=== PATIENT | male | born 1995 | race Caucasian/White ===

== ENCOUNTER 2018-07-11 10:24 | Emergency (ER) | payer OTHER ==
[2018-07-11] MEDS ORDERED: Acetaminophen/HYDROcodone 325-5 MG Tab PO ONE ×2 (10:58→11:35)
[2018-07-11] MEDS ORDERED: Lidocaine 1% 50 ML MDV INJECT ONE (10:59)
--- NOTE | 2018-07-11 11:39 | EDM.PDOC ---
ED HPI GENERAL MEDICAL PROBLEM - General Chief Complaint: ENT Problem Stated Complaint: MOUTH INJURY Time Seen by Provider: 07/11/18 10:47 Source of Information: Reports: Patient, RN Notes Reviewed - History of Present Illness INITIAL COMMENTS - FREE TEXT/NARRATIVE: 22-year-old male took a blow to his right face and mouth about AN hour and a half ago while at work. 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 The principal clerk typist "sprung back against him with the pipe striking his right mouth and face. He did suffer laceration to the right lower lip. He did suffer fracture of 2 of his right upper teeth. He is complaining of quite severe dental pain and does have localized facial pain as well. There was no LOC. He is not up-to-date with tetanus immunizations. He states he "refuses to take vaccinations". Right Face/Facial Pain Score (Numeric/FACES): 8 - Related Data Allergies Allergy/AdvReac Type Severity Reaction Status Date / Time No Known Allergies Allergy Verified 07/11/18 10:29 Home Meds: Home Meds Acetaminophen/HYDROcodone [[place] 325-5 MG] 1 tab PO Q6H PRN #10 tablet 07/11/18 [Rx] Past Medical History - Past Health History Medical/Surgical History: Denies Medical/Surgical History Social & Family History - Tobacco Use Smoking Status *Q: Never Smoker - Caffeine Use Caffeine Use: Reports: None - Recreational Drug Use Recreational Drug Use: No ED ROS ENT - Review of Systems Review Of Systems: See Below Constitutional: Reports: No Symptoms HEENT: Reports: Dental Pain, Other (Laceration right lower lip, mild facial discomfort right jaw) Respiratory: Denies: Shortness of Breath Cardiovascular: Denies: Chest Pain GI/Abdominal: Denies: Abdominal Pain, Nausea, Vomiting Musculoskeletal: Reports: No Symptoms Neurological: Denies: Headache, Trouble Speaking, Weakness ED EXAM, ENT - Physical Exam Exam: See Below General Appearance: Alert, Mild Distress Eye Exam: Bilateral Eye: PERRL Ears: Normal External Exam Nose: Normal Inspection Mouth/Throat: Dental Pain (there is visible fx of the R upper lateral incissor and more superfiscial fx of the upper tooth lateral to that. No bleeding or swelling from the gums. Lower teeth intact), Other (there is a 1.2 cm lac R lower lip, shallow but gaping. ) Head: Facial Tenderness (There is mild tenderness of the right lower jaw but no severe bony tenderness suggestive for fracture, remainder of face nontender), Other (No visible swelling or bruising to the face). No: Facial Swelling Neck: Supple Respiratory/Chest: No Respiratory Distress Extremities: Normal Inspection Neurological: Alert, Oriented, No Motor/Sensory Deficits Skin: Warm, Dry, Normal Color ED ENT PROCEDURES - Laceration/Wound Repair Right Lower Mouth Lac/wound length in cm: 1.2 Appearance: Linear Distal NVT: Neuro & Vascular Intact Anesthetic Type: Local Local Anesthesia - Lidocaine (Xylocaine): 1% Plain Skin Prep: Saline Suture Size: 4-0 # of Sutures: 4 Course - Vital Signs Last Recorded V/S: Last Vital Signs Temp 98.1 F 07/11/18 10:30 Pulse 86 07/11/18 10:30 Resp 18 07/11/18 10:30 BP 109/63 07/11/18 10:30 Pulse Ox 99 07/11/18 10:30 - Orders/Labs/Meds Meds: Medications Discontinued Medications Generic Name Dose Route Start Last Admin Trade Name Freq PRN Reason Stop Dose Admin Hydrocodone Bitart/Acetaminophen 1 tab 07/11/18 10:58 07/11/18 11:08 [place] 325-5 Mg PO 07/11/18 10:59 1 tab ONETIME ONE Administration Hydrocodone Bitart/Acetaminophen 1 tab 07/11/18 11:35 07/11/18 11:38 [place] 325-5 Mg PO 07/11/18 11:36 1 tab ONETIME ONE Administration Lidocaine HCl 50 ml 07/11/18 10:59 07/11/18 11:08 Xylocaine 1% INJECT 07/11/18 11:00 50 ml ONETIME ONE Administration - Re-Assessments/Exams Free Text/Narrative Re-Assessment/Exam: 07/11/18 13:31 X rays of face or CT of face not clinically indicated, patient is OK with that. Departure - Departure Time of Disposition: 11:35 Disposition: Home, Self-Care 01 Condition: Fair Clinical Impression: Facial contusion Qualifiers: Encounter type: initial encounter Qualified Code(s): S00.83XA - Contusion of other part of head, initial encounter Fractured tooth Qualifiers: Encounter type: initial encounter Fracture type: closed Qualified Code(s): S02.5XXA - Fracture of tooth (traumatic), initial encounter for closed fracture Laceration of lip Qualifiers: Encounter type: initial encounter Qualified Code(s): S01.511A - Laceration without foreign body of lip, initial encounter - Discharge Information Prescriptions: Acetaminophen/HYDROcodone [[place] 325-5 MG] 1 tab PO Q6H PRN #10 tablet PRN Reason: Pain Instructions: Contusion, [id number], Stitches, Corry, or Adhesive Wound Closure, [id number] Referrals: PCP,None [Primary Care Provider] - Forms: ED Department Discharge, ED Return to Work/School Form Additional Instructions: Ice packs and elevation for swelling, laceration care instructions, stitches out in 7 days. He may alternate Tylenol and ibuprofen for mild to moderate discomfort or take hydrocodone if needed for severe pain. Do not take Tylenol and hydrocodone at the same time, do not drive or work when taking hydrocodone. See dentist this afternoon as planned.
== END 2018-07-11 11:44 | disposition home or self-care (01) ==
LOC: JD.ED 10:24
DX: S02.5XXA Fracture of tooth (traumatic), initial encounter for closed fracture (principal); S01.511A Laceration without foreign body of lip, initial encounter; S00.83XA Contusion of other part of head, initial encounter; W22.8XXA Striking against or struck by other objects, initial encounter; Y93.89 Activity, other specified; Y92.89 Other specified places as the place of occurrence of the external cause; Y99.0 Civilian activity done for income or pay
CPT/HCPCS: 12011; 99283; A9270